=== PATIENT | female | born 1955 | race Caucasian/White ===

== ENCOUNTER 2017-12-26 10:09 | Inpatient (IN) | payer BC, OTHER ==
[~2017-12-26] VITALS: Ht 160 cm; Wt 58.5 kg
[~2017-12-26 10:09] MED LIST: ALPR-138 PO; CLON.5 PO; DERMOTIC EACH EAR; PHEN12.5 PR; TRAM50TA PO; VENL75TA91 PO; VITA200017 PO; Z.0.NO CURRENT MEDS
[2017-12-26 10:11] VITALS: BP 134/60; PULSE 95; RESP 16; TEMP 97.6; O2SAT 97
[2017-12-26] MEDS ORDERED: SODIUM CHLOR 0.9% 1000 ML INJ 1,000 ML IV SCH (10:48)
[2017-12-26] MEDS ORDERED: ESCI10TA PO (10:50)
[2017-12-26] MEDS ORDERED: CLON1TAB PO (10:50)
[2017-12-26] MEDS ORDERED: ALPR0.25 PO (10:50)
[2017-12-26 10:51] VITALS: O2SAT 99
--- NOTE | 2017-12-26 10:56 | PD ---
HPI Chief Complaint: GI Complaint Time Seen by Provider: 10:42 Travel History International Travel<30 days: No Contact w/Intl Traveler<30days: No Traveled to known affect area: No History of Present Illness HPI 62-year-old female complains of abdominal pain and blood per rectum. Patient states that she has abdominal pain and diarrhea nightly for the past 4 nights. Patient states the pain is cramping pain localized to the lower abdomen. Patient denies any pain radiation. Patient was seen by personal physician this morning and had outpatient lab work. Patient started having a large amount of blood per rectum subsequently. Patient states that she had persistent pain mostly epigastric and left upper abdomen this morning. Patient states the pain is cramping pain and sharp pain. Patient denies any pain radiation. Patient denies any dysuria or frequency. Patient denies any vaginal discharge or bleeding. Patient vomited once this morning. Patient is not on any anticoagulation. Patient states that she had colonoscopy done 2 years ago and was normal. PFSH Past Medical History Diminished Hearing: No ?: Not Menopausal: Yes Tubal Ligation: Yes Past Surgical History Appendectomy: Yes Social History Alcohol Use: No Tobacco Use: No Substance Use: No Allergies-Medications (Allergen,Severity, Reaction): Coded Allergies: warfarin (Unverified Allergy, Severe, sob/dizzy, 12/26/17) clonazepam (Unverified Adverse Reaction, Intermediate, vomiting and dizzy , 12/26/17) Reported Meds & Prescriptions Reported Meds & Active Scripts Active Reported Alprazolam 0.25 Mg Tab 0.25 Mg PO Q8H PRN Escitalopram (Escitalopram Oxalate) 10 Mg Tab 10 Mg PO DAILY Clonazepam 1 Mg Tab 1 Mg PO BID Review of Systems General / Constitutional: No: Fever Eyes: No: Visual changes HENT: No: Headaches Cardiovascular: No: Chest Pain or Discomfort Respiratory: No: Shortness of Breath Gastrointestinal: Positive: Abdominal Pain, Hematochezia Genitourinary: No: Dysuria Musculoskeletal: No: Pain Skin: No Rash Neurologic: No: Weakness Psychiatric: No: Depression Endocrine: No: Polydipsia Hematologic/Lymphatic: No: Easy Bruising Physical Exam Narrative GENERAL: Well-nourished, well-developed patient. SKIN: Focused skin assessment warm/dry. HEAD: Normocephalic. EYES: No scleral icterus. No injection or drainage. NECK: Supple, trachea midline. No JVD or lymphadenopathy. CARDIOVASCULAR: Regular rate and rhythm without murmurs, gallops, or rubs. RESPIRATORY: Breath sounds equal bilaterally. No accessory muscle use. GASTROINTESTINAL: Abdomen soft, nondistended. Patient has moderate tenderness on palpation epigastric and left upper quadrant of the abdomen. No rebound tenderness. No mass. Rectal exam Hemoccult trace positive. MUSCULOSKELETAL: No cyanosis, or edema. BACK: Nontender without obvious deformity. No CVA tenderness. Neurologic exam normal. Data Data Last Documented VS Vital Signs Date Time Temp Pulse Resp B/P (MAP) Pulse Ox O2 Delivery O2 Flow Rate FiO2 12/26/17 14:00 110 18 109/53 (71) 99 Room Air 12/26/17 10:11 97.6 Orders Orders Complete Blood Count With Diff (12/26/17 10:48) Comprehensive Metabolic Panel (12/26/17 10:48) Lipase (12/26/17 10:48) Prothrombin Time / Inr (Pt) (12/26/17 10:48) Act Partial Throm Time (Ptt) (12/26/17 10:48) Urinalysis - C+S If Indicated (12/26/17 10:48) Ct Abd/Pel W Iv Contrast(Rout) (12/26/17 10:48) Iv Access Insert/Monitor (12/26/17 10:48) Ecg Monitoring (12/26/17 10:48) Oximetry (12/26/17 10:48) Ondansetron Inj (Zofran Inj) (12/26/17 11:00) Sodium Chlor 0.9% 1000 Ml Inj (Ns 1000 M (12/26/17 10:48) Pantoprazole Inj (Protonix Inj) (12/26/17 11:00) Morphine Inj (Morphine Inj) (12/26/17 11:00) Iohexol 350 Inj (Omnipaque 350 Inj) (12/26/17 12:24) Labs Laboratory Tests Test 12/26/17 10:55 White Blood Count 7.3 TH/MM3 Red Blood Count 4.92 MIL/MM3 Hemoglobin 14.4 GM/DL Hematocrit 42.1 % Mean Corpuscular Volume 85.6 FL Mean Corpuscular Hemoglobin 29.3 PG Mean Corpuscular Hemoglobin Concent 34.3 % Red Cell Distribution Width 12.4 % Platelet Count 281 TH/MM3 Mean Platelet Volume 8.7 FL Neutrophils (%) (Auto) 75.9 % Lymphocytes (%) (Auto) 17.3 % Monocytes (%) (Auto) 6.5 % Eosinophils (%) (Auto) 0.1 % Basophils (%) (Auto) 0.2 % Neutrophils # (Auto) 5.6 TH/MM3 Lymphocytes # (Auto) 1.3 TH/MM3 Monocytes # (Auto) 0.5 TH/MM3 Eosinophils # (Auto) 0.0 TH/MM3 Basophils # (Auto) 0.0 TH/MM3 CBC Comment DIFF FINAL Differential Comment Prothrombin Time 10.2 SEC Prothromb Time International Ratio 1.0 RATIO Activated Partial Thromboplast Time 25.3 SEC Blood Urea Nitrogen 11 MG/DL Creatinine 0.74 MG/DL Random Glucose 101 MG/DL Total Protein 7.2 GM/DL Albumin 3.8 GM/DL Calcium Level 9.1 MG/DL Alkaline Phosphatase 72 U/L Aspartate Amino Transf (AST/SGOT) 24 U/L Alanine Aminotransferase (ALT/SGPT) 19 U/L Total Bilirubin 0.3 MG/DL Sodium Level 141 MEQ/L Potassium Level 3.4 MEQ/L Chloride Level 106 MEQ/L Carbon Dioxide Level 27.2 MEQ/L Anion Gap 8 MEQ/L Estimat Glomerular Filtration Rate 79 ML/MIN Lipase 149 U/L MDM Medical Decision Making Medical Screen Exam Complete: Yes Emergency Medical Condition: Yes Interpretation(s) Last Impressions Abdomen/Pelvis CT 12/26/17 1048 Signed Impressions: Service Date/Time: December 12:20 - CONCLUSION: 1. Questionable thickening of the transverse, descending and sigmoid portions of the colon. Some of this thickening may be secondary to lack of distention but some degree of underlying colitis could be considered. Significant surrounding inflammatory change is not seen. 2. Mild thickening of the urinary bladder. The urinary bladder is only mildly distended. There are 2 small foci of air within the urinary bladder. It can be correlated if the patient has been catheterized recently. 3. 6 mm nonobstructing right renal stone. 4. Mild compressive changes of the superior plate of T12. Jorge Houston MD 1420 p.m. CBC within normal limit. CMP within normal limit. Potassium 3.4. Differential Diagnosis Differential diagnosis including colitis, AV malformation, hemorrhoidal bleed. Narrative Course 62-year-old female with abdominal pain, diarrhea, blood per rectum. Normal saline solution 1 25 cc an hour. Protonix 40 mg IV. Morphine 2 mg IV. Zofran 4 mg IV. Diagnosis Primary Impression: Colitis Additional Impression: GI bleed Qualified Codes: K92.2 - Gastrointestinal hemorrhage, unspecified Ben Ray MD Dec 26, 2017 10:56
[2017-12-26] MEDS ORDERED: MORPHINE SULFATE 2 MG/ML INJ IV PUSH ONE ×2 (11:00→14:30)
[2017-12-26] MEDS ORDERED: PANTOPRAZOLE SODIUM 40 MG VIAL IV PUSH ONE (11:00)
[2017-12-26] MEDS ORDERED: ONDANSETRON HCL 4 MG/2 ML VIAL IVP ONE (11:00)
[2017-12-26 11:30] LABS: AUTOMATED NEUTROPHIL # 5.6 TH/MM3 (1.8-7.7); BASOPHIL % 0.2 % (0.0-2.0); EOSINOPHIL % 0.1 % (0.0-4.0); HEMATOCRIT 42.1 % (35.0-46.0); HEMOGLOBIN 14.4 GM/DL (11.6-15.3); LYMPH % 17.3 % (9.0-44.0); LYMPHOCYTE # 1.3 TH/MM3 (1.0-4.8); MEAN CELL VOLUME 85.6 FL (80.0-100.0); MEAN CORPUSCULAR HEMOGLOBIN 29.3 PG (27.0-34.0); MEAN CORPUSCULAR HGB CONC 34.3 % (32.0-36.0); MEAN PLATELET VOLUME 8.7 FL (7.0-11.0); MONO % 6.5 % (0.0-8.0); MONOCYTE # 0.5 TH/MM3 (0-0.9); NEUT % 75.9 % (16.0-70.0); PLATELET COUNT 281 TH/MM3 (150-450); RED BLOOD COUNT 4.92 MIL/MM3 (4.00-5.30); RED CELL DISTRIBUTION WIDTH 12.4 % (11.6-17.2); WHITE BLOOD COUNT 7.3 TH/MM3 (4.0-11.0)
[2017-12-26 11:41] LABS: PROTHROMBIN TIME - PATIENT 10.2 SEC (9.8-11.6)
[2017-12-26 11:51] LABS: ALBUMIN 3.8 GM/DL (3.4-5.0); AST (GOT) 24 U/L (15-37); BICARBONATE 27.2 MEQ/L (21.0-32.0); BLOOD UREA NITROGEN 11 MG/DL (7-18); CALCIUM 9.1 MG/DL (8.5-10.1); CHLORIDE 106 MEQ/L (98-107); CREATININE 0.74 MG/DL (0.50-1.00); GLOMERULAR FILTRATION RATE 79 ML/MIN (>89); GLUCOSE,RANDOM 101 MG/DL (74-106); SODIUM (NA) 141 MEQ/L (136-145)
[2017-12-26 11:52] LABS: ALT (GPT) 19 U/L (10-53)
[2017-12-26 11:55] LABS: ALKALINE PHOSPHATASE 72 U/L (45-117); TOTAL BILIRUBIN ADULT 0.3 MG/DL (0.2-1.0); TOTAL PROTEIN 7.2 GM/DL (6.4-8.2)
[2017-12-26] MEDS ORDERED: IOHEXOL 350 MG/ML 10 ML VIAL (for RAD DIAG) IVCONTRAST ONE (12:24)
--- NOTE | 2017-12-26 13:06 | RADRPT ---
EXAM DATE/TIME: 12/26/2017 12:20 [facility] COMPARISON: No previous studies available for comparison. INDICATIONS : Diarrhea and generalized abdominal pain. IV CONTRAST: 95 cc Omnipaque 350 (iohexol) IV ORAL CONTRAST: No oral contrast ingested. RADIATION DOSE: 7.45 CTDIvol (mGy) MEDICAL HISTORY : None SURGICAL HISTORY : Appendectomy. Tubal ligation. ENCOUNTER: Initial ACUITY: 4 - 6 days PAIN SCALE: 3/10 LOCATION: Bilateral anterior TECHNIQUE: Volumetric scanning of the abdomen and pelvis was performed. Using automated exposure control and ad justment of the mA and/or kV according to patient size, radiation dose was kept as low as reasonably achievable to obtain optimal diagnostic quality images. DICOM format image data is available electro nically for review and comparison. FINDINGS: LOWER LUNGS: The visualized lower lungs are clear. LIVER: Homogeneous density without lesion. There is no dilation of the biliary tree. No calcified gallston es. SPLEEN: Normal size without lesion. PANCREAS: Within normal limits. KIDNEYS: There is a 6 mm nonobstructing right renal stone seen in the inferior right collecting system. No hyd ronephrosis is seen on either side. There are small cysts seen bilaterally. ADRENAL GLANDS: Within normal limits. VASCULAR: There is no aortic aneurysm. BOWEL/MESENTERY: There is some thickening of the transverse, descending and sigmoid portions of colon. Some of the thi ckening may be secondary to lack of distention but some underlying process such as colitis can also b e contributing to this appearance. Significant bowel dilatation is not seen. ABDOMINAL WALL: Within normal limits. RETROPERITONEUM: There is no lymphadenopathy. BLADDER: There is streak artifact throughout the pelvis secondary to the bilateral hip prostheses. The bladder appears thickened. There are 2 small foci of air within the bladder. It should be correlated if the patient has been catheterized recently. REPRODUCTIVE: Within normal limits. INGUINAL: There is no lymphadenopathy or hernia. MUSCULOSKELETAL: Bilateral hip prostheses are in place. There is a concave deformity at the superior aspect of the T12 vertebral body which may represent a mild compression deformity. This is felt to likely be chronic. There is degenerative change of the lower lumbar spine. CONCLUSION: 1. Questionable thickening of the transverse, descending and sigmoid portions of the colon. Some of t his thickening may be secondary to lack of distention but some degree of underlying colitis could be considered. Significant surrounding inflammatory change is not seen. 2. Mild thickening of the urinary bladder. The urinary bladder is only mildly distended. There are 2 small foci of air within the urinary bladder. It can be correlated if the patient has been catheteriz ed recently. 3. 6 mm nonobstructing right renal stone. 4. Mild compressive changes of the superior plate of T12. Jorge Houston MD on December 26, 2017 at 12:57 Board Certified Radiologist. This report was verified electronically.
[2017-12-26 14:00] VITALS: BP 109/53; PULSE 110; RESP 18; O2SAT 99
[2017-12-26] MEDS ORDERED: LORazepam 2 MG/ML VIAL IV PUSH PRN (14:30)
[2017-12-26] MEDS ORDERED: TEMAZEPAM 15 MG CAP PO PRN (14:30)
[2017-12-26] MEDS ORDERED: NALOXONE HCL 0.4 MG/ML AMP IV PUSH PRN (14:30)
[2017-12-26] MEDS ORDERED: ACETAMINOPHEN 325 MG TAB PO PRN (14:30)
[2017-12-26] MEDS ORDERED: LEVOFLOXACIN 750 MG PREMIX INJ 150 ML IV ONE (14:30)
[2017-12-26] MEDS ORDERED: metroNIDAZOLE 500 MG INJ 100 ML IV ONE (14:30)
[2017-12-26] MEDS ORDERED: SODIUM CHLORIDE 0.9% FLUSH 10 ML FLUSH IV FLUSH PRN (14:30)
[2017-12-26] MEDS ORDERED: MAGNESIUM HYDROXIDE SUSP 30 ML CUP PO PRN (14:30)
--- NOTE | 2017-12-26 14:37 | HHI.HP ---
HPI Service [facility] Hospitalists Primary Care Physician Dorita Marie MD Admission Diagnosis Colitis Chief Complaint: Diarrhea 5 days with bright red blood per rectum Travel History International Travel<30 Days: No Contact w/Intl Traveler <30 Da: No Traveled to Known Affected Are: No History of Present Illness This a 62-year-old female patient with past medical history which includes anxiety/depression. Patient reports starting Saturday night she began to have abdominal cramping with intermitted diarrhea which last till Saturday then resolved. This reoccurred Saturday evening and Saturday. Therefore for the past 5 nights she has been having diarrhea. Patient reports the diarrhea has only been occurring at night. Patient otherwise has been able to tolerate PO intake and hydration. Associated symptoms Dizziness with slight headache Saturday early AM. Patient saw here PCP Dr. Ozuna this AM, then patient had an episode of BRBPR x 1 today. Patient also reports one episode of vomiting after taking Pepto Bismol this AM. Patient also endorses both cramping and sharp abdominal pain worse LUQ. Patient's last coloscopy was two years ago and patient reports it was normal. Patient's last abx use was is September 2017 for an UTI. Patient denies history of colitis, diverticulitis, GI bleeding or colon cancer. Per ER MD patient had positive guaiac stool but no active bleeding in the ER. Hgb 14.4 and hematocrit 42.[address] reviewed and revealed: Question of thickening thickening of the transverse, descending and sigmoid portions of the colon. Some thickening may be secondary to lack of distention but some degree of underlying colitis could be considered. Significant surrounding inflammatory change is not seen. Mild thickening of the urinary bladder. The urinary bladder is only mildly distended. There are 2 small foci of air within the urinary bladder. The it could be correlated to the patient has been catheterized recently. 6 mm nonobstructing right renal stone. Mild compressive changes of the superior plate of T12. Patient started on Levaquin and Flagyl in the emergency department Review of Systems Constitutional: DENIES: Fatigue, Fever, Chills Respiratory: DENIES: Cough, Sputum production, Shortness of breath Cardiovascular: DENIES: Chest pain, Palpitations, Lower Extremity Edema Gastrointestinal: COMPLAINS OF: Abdominal pain, BRB per rectum, Diarrhea, Nausea, Vomiting Genitourinary: DENIES: Abnormal vaginal bleeding Neurologic: DENIES: Abnormal gait, Headache, Localized weakness Psychiatric: DENIES: Confusion, Depression, Agitation Past Family Social History Past Medical History Anxiety/depression Past Surgical History Appendectomy Renal lithotripsy Total hip replacements bilaterally Tubal ligation Reported Medications Alprazolam 0.25 Mg Tab 0.25 Mg PO Q8H PRN Escitalopram (Escitalopram Oxalate) 10 Mg Tab 10 Mg PO DAILY Clonazepam 1 Mg Tab 1 Mg PO BID Allergies: Coded Allergies: warfarin (Unverified Allergy, Severe, sob/dizzy, 12/26/17) clonazepam (Unverified Adverse Reaction, Intermediate, vomiting and dizzy , 12/26/17) Active Ordered Medications Current Medications Medications (Trade) Dose Ordered Sig/Donovan Route Start Time Stop Time Status Last Admin Sodium Chloride 1,000 ml @ 125 mls/hr Q8H IV 12/26/17 10:48 12/26/17 18:47 12/26/17 11:17 Levofloxacin/ Dextrose 150 ml @ 100 mls/hr ONCE ONCE IV 12/26/17 14:30 12/26/17 15:59 Metronidazole 100 ml @ 100 mls/hr ONCE ONCE IV 12/26/17 14:30 12/26/17 15:29 (NS Flush) 2 ml UNSCH PRN IV FLUSH 12/26/17 14:30 (NS Flush) 2 ml BID IV FLUSH 12/26/17 21:00 (Tylenol) 650 mg Q4H PRN PO 12/26/17 14:30 (Zofran Inj) 4 mg Q6H PRN IVP 12/26/17 14:30 (Restoril) 15 mg HS PRN PO 12/26/17 14:30 (Narcan Inj) 0.4 mg UNSCH PRN IV PUSH 12/26/17 14:30 (Milk Of Magnesia Liq) 30 ml Q12H PRN PO 12/26/17 14:30 (Ativan Inj) 0.5 mg Q4H PRN IV PUSH 12/26/17 14:30 Potassium Chloride/Sodium Chloride 1,000 ml @ 100 mls/hr Q10H IV 12/26/17 14:45 12/27/17 08:00 UNV (Levaquin) 500 mg DAILY PO 12/27/17 08:00 UNV (Flagyl) 500 mg Q8HR PO 12/26/17 20:00 UNV (Duenweg 5-325 Mg) 1 tab Q6H PRN PO 12/26/17 14:45 UNV (Dilaudid Pf Inj) 0.5 mg Q6H PRN IV PUSH 12/26/17 14:45 UNV Family History Reviewed and noncontributory Social History Patient is currently Former tobacco use quit tobacco use 32 years ago Denies EtOH use or illicit drug use Physical Exam Vital Signs Vital Signs Date Time Temp Pulse Resp B/P (MAP) Pulse Ox O2 Delivery O2 Flow Rate FiO2 12/26/17 14:00 110 18 109/53 (71) 99 Room Air 12/26/17 10:51 99 Room Air 12/26/17 10:11 97.6 95 16 134/60 (84) 97 Physical Exam GENERAL: This is a well-nourished, well-developed patient, in no apparent distress. SKIN: No rashes, ecchymoses or lesions. Cool and dry. HEAD: Atraumatic. Normocephalic. No temporal or scalp tenderness. EYES: Extraocular motions intact. No scleral icterus. No injection or drainage. CARDIOVASCULAR: Regular rate and rhythm RESPIRATORY: Clear to auscultation. Breath sounds equal bilaterally. GASTROINTESTINAL: Abdomen soft, tender LUQ, nondistended. MUSCULOSKELETAL: Extremities without clubbing, cyanosis, or edema. No joint tenderness, effusion, or edema noted. No calf tenderness. Negative Homans sign bilaterally. NEUROLOGICAL: Awake and alert. Motor and sensory grossly within normal limits. Five out of 5 muscle strength in all muscle groups. Normal speech. Laboratory Laboratory Tests Test 12/26/17 10:55 White Blood Count 7.3 Red Blood Count 4.92 Hemoglobin 14.4 Hematocrit 42.1 Mean Corpuscular Volume 85.6 Mean Corpuscular Hemoglobin 29.3 Mean Corpuscular Hemoglobin Concent 34.3 Red Cell Distribution Width 12.4 Platelet Count 281 Mean Platelet Volume 8.7 Neutrophils (%) (Auto) 75.9 Lymphocytes (%) (Auto) 17.3 Monocytes (%) (Auto) 6.5 Eosinophils (%) (Auto) 0.1 Basophils (%) (Auto) 0.2 Neutrophils # (Auto) 5.6 Lymphocytes # (Auto) 1.3 Monocytes # (Auto) 0.5 Eosinophils # (Auto) 0.0 Basophils # (Auto) 0.0 CBC Comment DIFF FINAL Differential Comment Prothrombin Time 10.2 Prothromb Time International Ratio 1.0 Activated Partial Thromboplast Time 25.3 Blood Urea Nitrogen 11 Creatinine 0.74 Random Glucose 101 Total Protein 7.2 Albumin 3.8 Calcium Level 9.1 Alkaline Phosphatase 72 Aspartate Amino Transf (AST/SGOT) 24 Alanine Aminotransferase (ALT/SGPT) 19 Total Bilirubin 0.3 Sodium Level 141 Potassium Level 3.4 Chloride Level 106 Carbon Dioxide Level 27.2 Anion Gap 8 Estimat Glomerular Filtration Rate 79 Lipase 149 Result Diagram: 12/26/17 1055 12/26/17 1055 Imaging Last Impressions Abdomen/Pelvis CT 12/26/17 1048 Signed Impressions: Service Date/Time: December 12:20 - CONCLUSION: 1. Questionable thickening of the transverse, descending and sigmoid portions of the colon. Some of this thickening may be secondary to lack of distention but some degree of underlying colitis could be considered. Significant surrounding inflammatory change is not seen. 2. Mild thickening of the urinary bladder. The urinary bladder is only mildly distended. There are 2 small foci of air within the urinary bladder. It can be correlated if the patient has been catheterized recently. 3. 6 mm nonobstructing right renal stone. 4. Mild compressive changes of the superior plate of T12. Jorge Houston MD Caprini VTE Risk Assessment Caprini VTE Risk Assessment: No/Low Risk (score <= 1) Caprini Risk Assessment Model Point Value = 1 Point Value = 2 Point Value = 3 Point Value = 5 Age 41-60 Minor surgery BMI > 25 kg/m2 Swollen legs Varicose veins or History of unexplained or recurrent spontaneous Oral contraceptives or hormone replacement Sepsis (< 1 month) Serious lung disease, including pneumonia (< 1 month) Abnormal pulmonary function Acute myocardial infarction Congestive heart failure (< 1 month) History of inflammatory bowel disease Medical patient at bed rest Age 61-74 Arthroscopic surgery Major open surgery (> 45 min) Laparoscopic surgery (> 45 min) Malignancy Confined to bed (> 72 hours) Immobilizing plaster cast Central venous access Age >= 75 History of VTE Family history of VTE Factor V Leiden Prothrombin 44117H Lupus anticoagulant Anticardiolipin antibodies Elevated serum homocysteine Heparin-induced thrombocytopenia Other congenital or acquired thrombophilia Stroke (< 1 month) Elective arthroplasty Hip, pelvis, or leg fracture Acute spinal cord injury (< 1 month) Prophylaxis Regimen Total Risk Factor Score Risk Level Prophylaxis Regimen 0-1 Low Early ambulation 2 Moderate Order ONE of the following: *Sequential Compression Device (SCD) *Heparin 5000 units SQ BID 3-4 Higher Order ONE of the following medications: *Heparin 5000 units SQ TID *Enoxaparin/Lovenox 40 mg SQ daily (WT < 150 kg, CrCl > 30 mL/min) *Enoxaparin/Lovenox 30 mg SQ daily (WT < 150 kg, CrCl > 10-29 mL/min) *Enoxaparin/Lovenox 30 mg SQ BID (WT < 150 kg, CrCl > 30 mL/min) AND/OR *Sequential Compression Device (SCD) 5 or more Highest Order ONE of the following medications: *Heparin 5000 units SQ TID (Preferred with Epidurals) *Enoxaparin/Lovenox 40 mg SQ daily (WT < 150 kg, CrCl > 30 mL/min) *Enoxaparin/Lovenox 30 mg SQ daily (WT < 150 kg, CrCl > 10-29 mL/min) *Enoxaparin/Lovenox 30 mg SQ BID (WT < 150 kg, CrCl > 30 mL/min) AND *Sequential Compression Device (SCD) Assessment and Plan Problem List: (1) Colitis ICD Codes: K52.9 - Noninfective gastroenteritis and colitis, unspecified Status: Acute Plan: This a 62-year-old female patient with past medical history which includes anxiety/depression. Patient reports for the past 5 nights she has been having diarrhea. Patient reports the diarrhea has only been occurring at night. Patient otherwise has been able to tolerate PO intake and hydration. Today this patient had an episode of BRBPR x 1 today. Patient also reports one episode of vomiting after taking Pepto Bismol this AM. Patient also endorses both cramping and sharp abdominal pain worse LUQ. Patient's last coloscopy was two years ago and patient reports it was normal. - Per ER MD patient had positive guaiac stool but no active bleeding in the ER. - Hgb 14.4 on admission - Recheck in AM - CT reviewed and revealed: Question of thickening thickening of the transverse , descending and sigmoid portions of the colon. Some thickening may be secondary to lack of distention but some degree of underlying colitis could be considered. Significant surrounding inflammatory change is not seen. Mild thickening of the urinary bladder. The urinary bladder is only mildly distended. There are 2 small foci of air within the urinary bladder. The it could be correlated to the patient has been catheterized recently. 6 mm nonobstructing right renal stone. Mild compressive changes of the superior plate of T12. - Patient started on Levaquin and Flagyl in the emergency department - continue Levaquin and Flagyl - IV fluids for hydration - clear liquid diet - Duenweg PO and Dilaudid IV as needed for pain - Consult GI - Stool studies including C diff - Protonix 40 mg daily SCDs for DVT prophylaxis (2) GI bleed ICD Codes: K92.2 - Gastrointestinal hemorrhage, unspecified Status: Acute Plan: see above (3) Generalized anxiety disorder Status: Chronic Plan: Continue patient's home regiment Assessment and Plan Patient examined. Assessment and plan formulated with Digna Bonds PA-C. I agree with the above. Problem Qualifiers (1) GI bleed: Qualified Codes: K92.2 - Gastrointestinal hemorrhage, unspecified Digna Bonds Dec 26, 2017 14:37 Frandy Rodriguez DO Jan 01, 2018 10:50
[2017-12-26] MEDS ORDERED: ACETAMINOPHEN/HYDROcodone 325 MG/5 MG TAB PO PRN (14:45)
[2017-12-26] MEDS ORDERED: HYDROmorphone HCL PF 1 MG/ML VIAL IV PUSH PRN (14:45)
[2017-12-26] MEDS ORDERED: 1/2 NS + KCL 20 MEQ INJ 1,000 ML IV SCH (14:45)
[2017-12-26] MEDS ORDERED: ALPRAZolam 0.25 MG TAB PO PRN (15:00)
--- NOTE | 2017-12-26 15:15 | RADRPT ---
EXAM DATE/TIME: 12/26/2017 14:35 [facility] COMPARISON: No previous studies available for comparison. INDICATIONS : Pt. sent by MEDICAL HISTORY : colitis SURGICAL HISTORY : None. ENCOUNTER: Initial ACUITY: 1 day PAIN SCORE: 0/10 LOCATION: Bilateral chest FINDINGS: A single view of the chest demonstrates the lungs to be symmetrically aerated without evidence of mas s, infiltrate or effusion. The cardiomediastinal contours are unremarkable. Osseous structures are intact. CONCLUSION: No acute disease. Norberto Souza MD on December 26, 2017 at 15:11 Board Certified Radiologist. This report was verified electronically.
--- NOTE | 2017-12-26 16:01 | PD.CONS ---
HPI History of Present Illness This is a 62 year old female who presented to the ER after being advised by her PCP Dr Marie to come for persistent nightly diarrhea for the last 4 nights, abd pain. ABD pain is diffuse. THis morning she had sensation of needing to defecate and it was all red blood, no stool. Had small amount of blood few hours ago when she used bathroom, nothing since. SHe did have n/v this morning. NO blood or coffee grounds in emesis. 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 3 weeks ago she started lexapro 3 wks ago. Denies fever , recent use abx, diet changes. Last colonoscopy 2 y ago at [facility] finding of small int hemorrhoid and small ext hemorrhoid. Never had EGD. PFSH Past Medical History depression/anxiety insomnia Past Surgical History appendectomy tubal ligation 3 x hip replacements Coded Allergies: warfarin (Unverified Allergy, Severe, sob/dizzy, 12/26/17) clonazepam (Unverified Adverse Reaction, Intermediate, vomiting and dizzy , 12/26/17) Family History denies Social History denies etoh former smoker quit 32 y ago no illicit drug use Review of Systems Constitutional: DENIES: Fever Eyes: DENIES: Blurred vision Ears, nose, mouth, throat: DENIES: Hearing loss Respiratory: DENIES: Cough Cardiovascular: DENIES: Chest pain Gastrointestinal: COMPLAINS OF: Abdominal pain, Bloody stools, Diarrhea, Nausea , Vomiting, DENIES: Hematemesis Genitourinary: DENIES: Hematuria Musculoskeletal: DENIES: Joint Swelling Integumentary: DENIES: Abnormal pigmentation Hematologic/lymphatic: DENIES: Bruising Neurologic: DENIES: Abnormal gait Psychiatric: COMPLAINS OF: Anxiety GI Exam Vitals I&O Vital Signs Date Time Temp Pulse Resp B/P (MAP) Pulse Ox O2 Delivery O2 Flow Rate FiO2 12/26/17 14:00 110 18 109/53 (71) 99 Room Air 12/26/17 10:51 99 Room Air 12/26/17 10:11 97.6 95 16 134/60 (84) 97 Laboratory Test 12/26/17 10:55 White Blood Count 7.3 TH/MM3 Red Blood Count 4.92 MIL/MM3 Hemoglobin 14.4 GM/DL Hematocrit 42.1 % Mean Corpuscular Volume 85.6 FL Mean Corpuscular Hemoglobin 29.3 PG Mean Corpuscular Hemoglobin Concent 34.3 % Red Cell Distribution Width 12.4 % Platelet Count 281 TH/MM3 Mean Platelet Volume 8.7 FL Neutrophils (%) (Auto) 75.9 % Lymphocytes (%) (Auto) 17.3 % Monocytes (%) (Auto) 6.5 % Eosinophils (%) (Auto) 0.1 % Basophils (%) (Auto) 0.2 % Neutrophils # (Auto) 5.6 TH/MM3 Lymphocytes # (Auto) 1.3 TH/MM3 Monocytes # (Auto) 0.5 TH/MM3 Eosinophils # (Auto) 0.0 TH/MM3 Basophils # (Auto) 0.0 TH/MM3 CBC Comment DIFF FINAL Differential Comment Prothrombin Time 10.2 SEC Prothromb Time International Ratio 1.0 RATIO Activated Partial Thromboplast Time 25.3 SEC Blood Urea Nitrogen 11 MG/DL Creatinine 0.74 MG/DL Random Glucose 101 MG/DL Total Protein 7.2 GM/DL Albumin 3.8 GM/DL Calcium Level 9.1 MG/DL Alkaline Phosphatase 72 U/L Aspartate Amino Transf (AST/SGOT) 24 U/L Alanine Aminotransferase (ALT/SGPT) 19 U/L Total Bilirubin 0.3 MG/DL Sodium Level 141 MEQ/L Potassium Level 3.4 MEQ/L Chloride Level 106 MEQ/L Carbon Dioxide Level 27.2 MEQ/L Anion Gap 8 MEQ/L Estimat Glomerular Filtration Rate 79 ML/MIN Lipase 149 U/L Physical Examination HEENT: Pupils round and reactive to light; normocephalic; atraumatic; no jaundice. Throat is clear. NECK: Neck is supple, no JVD, no lymphadenopathy. CHEST: Chest is clear to auscultation and percussion. CARDIAC: Regular rate and rhythm with no murmur gallop or rubs. ABDOMEN: Soft, nondistended, nontender; no hepatosplenomegaly; bowel sounds are present in all four quadrants. EXTREMITIES: No clubbing, cyanosis, or edema. SKIN: Normal; no rash; no jaundice. [employer]: No focal deficits; alert and oriented times three. Shari Wolf Dec 26, 2017 16:01
[2017-12-26] MEDS: ONDANSETRON HCL 4 MG/2 ML VIAL IVP PRN ×2 (16:26→22:46)
[2017-12-26 16:27] VITALS: BP 128/60; PULSE 64; RESP 17; O2SAT 99
[2017-12-26] MEDS ORDERED: PEG (High)/E-LYTE SOLN 4000 ML BTL PO ONE (17:00)
[2017-12-26 18:00] VITALS: BP 128/60; PULSE 65; RESP 17; TEMP 96.8; O2SAT 95
[2017-12-26] MEDS: clonazePAM 1 MG TAB PO SCH (18:14)
[2017-12-26 20:00] VITALS: BP 107/53; PULSE 103; RESP 18; TEMP 96.4; O2SAT 92
[2017-12-26] MEDS ORDERED: ESCITALOPRAM OXALATE 10 MG TAB PO SCH (21:00)
[2017-12-26] MEDS ORDERED: clonazePAM 1 MG TAB PO SCH (21:00)
[2017-12-26] MEDS: metroNIDAZOLE 500 MG TAB PO SCH (22:47)
[2017-12-26] MEDS: SODIUM CHLORIDE 0.9% FLUSH 10 ML FLUSH IV FLUSH SCH (22:47)
[2017-12-27] VITALS: BP 87/54; PULSE 70; RESP 18; TEMP 96.9; O2SAT 96
[2017-12-27] MEDS ORDERED: SODIUM CHLORID 0.9% 500 ML IV PRN (02:30)
[2017-12-27] MEDS ORDERED: LACTATED RINGER'S 1000 ML IV PRN (02:30)
[2017-12-27 04:52] VITALS: BP 102/53; PULSE 80; RESP 18; TEMP 96.1; O2SAT 94
[2017-12-27 05:50] LABS: AUTOMATED NEUTROPHIL # 5.8 TH/MM3 (1.8-7.7); BASOPHIL % 0.1 % (0.0-2.0); EOSINOPHIL % 0.3 % (0.0-4.0); HEMATOCRIT 38.2 % (35.0-46.0); LYMPH % 13.4 % (9.0-44.0); MEAN CELL VOLUME 86.5 FL (80.0-100.0); MEAN CORPUSCULAR HEMOGLOBIN 29.4 PG (27.0-34.0); MONO % 6.5 % (0.0-8.0); MONOCYTE # 0.5 TH/MM3 (0-0.9); NEUT % 79.7 % (16.0-70.0); PLATELET COUNT 218 TH/MM3 (150-450); RED BLOOD COUNT 4.41 MIL/MM3 (4.00-5.30); RED CELL DISTRIBUTION WIDTH 12.3 % (11.6-17.2); WHITE BLOOD COUNT 7.3 TH/MM3 (4.0-11.0)
[2017-12-27 06:21] LABS: BICARBONATE 26.2 MEQ/L (21.0-32.0); CALCIUM 8.1 MG/DL (8.5-10.1); CREATININE 0.58 MG/DL (0.50-1.00)
[2017-12-27] MEDS: metroNIDAZOLE 500 MG TAB PO SCH (06:51)
[2017-12-27 07:56] VITALS: BP 109/51; PULSE 80; RESP 14; TEMP 97.8; O2SAT 96
[2017-12-27] MEDS ORDERED: LEVOFLOXACIN 500 MG TAB PO SCH (08:00)
[2017-12-27] MEDS: clonazePAM 1 MG TAB PO SCH (08:41)
[2017-12-27] MEDS: SODIUM CHLORIDE 0.9% FLUSH 10 ML FLUSH IV FLUSH SCH (08:41)
[2017-12-27] MEDS ORDERED: ESCITALOPRAM OXALATE 10 MG TAB PO SCH (09:00)
[2017-12-27] MEDS ORDERED: LEVA500T33 PO ×2 (09:21→09:38)
[2017-12-27] MEDS ORDERED: METR-1 PO ×2 (09:21→09:38)
--- NOTE | 2017-12-27 09:32 | HHI.DS ---
Discharge Summary Admission Date Dec 26, 2017 at 15:03 Discharge Date: Dec 27, 2017 Admitting Diagnosis Colitis (1) Colitis Diagnosis: Principal ICD Codes: K52.9 - Noninfective gastroenteritis and colitis, unspecified Status: Acute (2) GI bleed Diagnosis: Principal ICD Codes: K92.2 - Gastrointestinal hemorrhage, unspecified Status: Acute (3) Generalized anxiety disorder Diagnosis: Secondary Status: Chronic Consultants Dr. Constantino, GI Procedures none Brief History This a 62-year-old female patient with past medical history which includes anxiety/depression. Patient reports starting Saturday night she began to have abdominal cramping with intermitted diarrhea which last till Saturday AM then resolved. This reoccurred Saturday evening and Saturday evening. Therefore for the past 5 nights she has been having diarrhea. Patient reports the diarrhea has only been occurring at night. Patient otherwise has been able to tolerate PO intake and hydration. Associated symptoms Dizziness with slight headache Saturday early AM. Patient saw here PCP Dr. Ozuna this AM, then patient had an episode of BRBPR x 1 today. Patient also reports one episode of vomiting after taking Pepto Bismol this AM. Patient also endorses both cramping and sharp abdominal pain worse LUQ. Patient's last coloscopy was two years ago and patient reports it was normal. Patient's last abx use was is September 2017 for an UTI. Patient denies history of colitis, diverticulitis, GI bleeding or colon cancer. Per ER MD patient had positive guaiac stool but no active bleeding in the ER. Hgb 14.4 and hematocrit 42.[address] reviewed and revealed: Question of thickening thickening of the transverse, descending and sigmoid portions of the colon. Some thickening may be secondary to lack of distention but some degree of underlying colitis could be considered. Significant surrounding inflammatory change is not seen. Mild thickening of the urinary bladder. The urinary bladder is only mildly distended. There are 2 small foci of air within the urinary bladder. The it could be correlated to the patient has been catheterized recently. 6 mm nonobstructing right renal stone. Mild compressive changes of the superior plate of T12. Patient started on Levaquin and Flagyl in the emergency department CBC/BMP: 12/27/17 0410 12/27/17 0410 Significant Findings Laboratory Tests Test 12/26/17 10:55 12/27/17 04:10 Neutrophils (%) (Auto) 75.9 % (16.0-70.0) 79.7 % (16.0-70.0) Potassium Level 3.4 MEQ/L (3.5-5.1) Estimat Glomerular Filtration Rate 79 ML/MIN (>89) Calcium Level 8.1 MG/DL (8.5-10.1) Imaging Last Impressions Chest X-Ray 12/26/17 1428 Signed Impressions: Service Date/Time: December 14:35 - CONCLUSION: No acute disease. Norberto Souza MD Abdomen/Pelvis CT 12/26/17 1048 Signed Impressions: Service Date/Time: December 12:20 - CONCLUSION: 1. Questionable thickening of the transverse, descending and sigmoid portions of the colon. Some of this thickening may be secondary to lack of distention but some degree of underlying colitis could be considered. Significant surrounding inflammatory change is not seen. 2. Mild thickening of the urinary bladder. The urinary bladder is only mildly distended. There are 2 small foci of air within the urinary bladder. It can be correlated if the patient has been catheterized recently. 3. 6 mm nonobstructing right renal stone. 4. Mild compressive changes of the superior plate of T12. Jorge Houston MD PE at Discharge GENERAL: This is a well-nourished, well-developed patient, anxious in no acute distress. CARDIOVASCULAR: Regular rate and rhythm without murmurs, gallops, or rubs. RESPIRATORY: Clear to auscultation. Breath sounds equal bilaterally. No wheezes , rales, or rhonchi. GASTROINTESTINAL: Abdomen soft, non-tender, nondistended. Normal active bowel sounds MUSCULOSKELETAL: Extremities without clubbing, cyanosis, or edema. NEURO: Alert & Oriented x4 to person, place, time, situation. Moves all ext x4 Hospital Course Colitis This a 62-year-old female patient with past medical history which includes anxiety/depression. Patient reports for the past 5 nights she has been having diarrhea. Patient reports the diarrhea has only been occurring at night. Patient otherwise has been able to tolerate PO intake and hydration. Today this patient had an episode of BRBPR x 1 today. Patient also reports one episode of vomiting after taking Pepto Bismol this AM. Patient also endorses both cramping and sharp abdominal pain worse LUQ. Patient's last coloscopy was two years ago and patient reports it was normal. - Per ER MD patient had positive guaiac stool but no active bleeding in the ER. - Hgb 14.4 on admission - Recheck in AM - CT reviewed and revealed: Question of thickening thickening of the transverse , descending and sigmoid portions of the colon. Some thickening may be secondary to lack of distention but some degree of underlying colitis could be considered. Significant surrounding inflammatory change is not seen. Mild thickening of the urinary bladder. The urinary bladder is only mildly distended. There are 2 small foci of air within the urinary bladder. The it could be correlated to the patient has been catheterized recently. 6 mm nonobstructing right renal stone. Mild compressive changes of the superior plate of T12. - Patient started on Levaquin and Flagyl in the emergency department - continue Levaquin and Flagyl - IV fluids for hydration - clear liquid diet - [place] PO and Dilaudid IV as needed for pain - Consult GI, recommended colonoscopy patient unable to tolerate prep and refusing colonoscopy at this time - Stool studies including C diff - Protonix 40 mg daily SCDs for DVT prophylaxis GI bleed see above Generalized anxiety disorder Continue patient's home regiment Patient has had no stool during hospitalization. Patient reports feeling much and requesting to go home. Patient understands risks and is refusing to stay in the hospital any longer. Pt Condition on Discharge: Stable Discharge Disposition: Discharge Home Discharge Instructions DIET: Follow Instructions for: Soft Diet Activities you can perform: Regular-No Restrictions Follow up Referrals: Gastroenterology - 2 Weeks with Anupama Constantino MD PCP Follow-up - [address] Marie New Medications: Levofloxacin (Levaquin) 500 Mg Tablet 500 MG PO Q24H for antibiotic, #6 EACH 0 Refills Metronidazole (Flagyl) 500 Mg Tab 500 MG PO Q8HR for antibiotic, #18 TAB 0 Refills Continued Medications: Alprazolam (Alprazolam) 0.25 Mg Tab 0.25 MG PO Q8H PRN for ANXIETY, TAB 0 Refills Clonazepam (Clonazepam) 1 Mg Tab 1 MG PO TID, #60 TAB 0 Refills Patient takes 1 tablets with breakfast, 1 tablets with lunch and 2 tablets before bed Escitalopram (Escitalopram) 10 Mg Tab 10 MG PO DAILY, #30 TAB 0 Refills Additional Information Patient examined. Assessment and plan formulated with Digna Bonds PA-C. I agree with the above. Pt declined further hospitalization. continue course of PO levaquin/flagyl f/u with PCP in 1 week f/u with [facility] in 2-3 weeks. Digna Bonds Dec 27, 2017 09:32 Frandy Rodriguez DO Jan 01, 2018 10:52
[2017-12-27] MEDS ORDERED: PANTOPRAZOLE SODIUM 40 MG VIAL IV PUSH SCH (11:00)
--- NOTE | 2017-12-27 19:45 | EKG ---
Date Performed: 12/26/2017 Time Performed: 17:12:10 PTAGE: 62 years EKG: SINUS BRADYCARDIA POSSIBLE LEFT ATRIAL ENLARGEMENT BORDERLINE ECG Since the prior tracing, there has been no significant change PREVIOUS TRACING : 01/12/1994 11.14 DOCTOR: Terence Hollins Interpretating Date/Time 12/27/2017 19:43:45
== END 2017-12-27 11:00 | disposition home or self-care (01) | DRG 392 ==
LOC: NEPC 10:09 → NEDA 15:03 → N07B 17:21
PROVIDERS: ADMIT Hospitalist; ATTEND Hospitalist
DX: K52.9 Noninfective gastroenteritis and colitis, unspecified (principal); F41.1 Generalized anxiety disorder; Z87.891 Personal history of nicotine dependence
CPT/HCPCS: 71045; 74177; 80048; 80053; 83690; 85025; 85610; 85730; 93005; 96361; 96374; 96375; C9113; J1170; J1956; J2060; J2270; J2405; J7030; Q9967

== ENCOUNTER 2018-03-07 12:50 | Day surgery (SDC) | payer OTHER ==
[~2018-03-07 12:50] MED LIST changes: -ALPR-138 PO; +ALPR0.25 PO; -CLON.5 PO; +CLON1TAB PO; -DERMOTIC EACH EAR; +ESCI10TA PO; +LEVA500T33 PO; +METR-1 PO; -PHEN12.5 PR; -TRAM50TA PO; -VENL75TA91 PO; -VITA200017 PO; -Z.0.NO CURRENT MEDS
[2018-03-07 13:15] VITALS: BP 113/70; PULSE 60; TEMP 97.5; O2SAT 95
[2018-03-07] MEDS ORDERED: PARO25TA PO (13:24)
--- NOTE | 2018-03-07 14:34 | RADRPT ---
EXAM DATE/TIME: 03/07/2018 14:35 [facility] COMPARISON: No previous studies available for comparison. INDICATIONS : Patient with a history of rectal cancer. MEDICAL HISTORY : Anemia Anxiety Arthritis Colitis Polyps Kidney stones SURGICAL HISTORY : Appendectomy Tubal ligation Bilateral hip replacements Lithotripsy ENCOUNTER: Initial ACUITY: 3 weeks PAIN SCORE: 0/10 FLUORO TIME: 0.26 minutes IMAGE SERIES: 1 ACCESS: Right basilic vein DEVICE(S): 1.) 4 [place] single lumen 40 cm Power PICC PROCEDURE : 1. Ultrasound guidance for venous catheterization. 2. Fluoroscopic guidance. 3. Ultrasound & fluoroscopic guided central venous Power PICC line placement. The risks, benefits and alternatives to the procedure were explained and verbal and written consent w as obtained. The site was prepped in sterile fashion. Full sterile technique was used, including ca p, mask, sterile gloves and gown and a large sterile sheet. Hand hygiene and 2% chlorhexidine prep w as utilized per protocol for cutaneous antisepsis with appropriate dry time for site. Sterile gel a nd sterile probe cover were utilized for ultrasound guidance. The skin and subcutaneous tissues wer e infiltrated with local anesthetic solution. Under direct ultrasound guidance, a suitable vein was accessed and a measuring guidewire was introduc ed and positioned in the central venous system. The ultrasound images depicting access guidance were saved and stored to PACS for permanent record. A Power Injectable PICC line was cut to prescribed length and introduced, positioned with tip at the cavoatrial junction level. The line was flushed and secured per protocol. CONCLUSION: 1. Uncomplicated central venous Power PICC line placement. 2. The PICC line can be used immediately. Yunier Hernandez MD on March 07, 2018 at 14:32 Board Certified Radiologist. This report was verified electronically.
== END 2018-03-07 14:57 | disposition home or self-care (01) ==
LOC: HROP 12:50
PROVIDERS: ATTEND Internal Medicine Hematology & Oncology
DX: C20 Malignant neoplasm of rectum (principal); Z87.442 Personal history of urinary calculi; F41.9 Anxiety disorder, unspecified; D64.9 Anemia, unspecified; K52.9 Noninfective gastroenteritis and colitis, unspecified; M19.90 Unspecified osteoarthritis, unspecified site; Z96.643 Presence of artificial hip joint, bilateral
CPT/HCPCS: 36569; 76937; 77001; C1751; J1642

== ENCOUNTER 2018-03-24 09:34 | Inpatient (IN) | payer OTHER ==
[2018-03-24] VITALS (8 sets, daily range): BP systolic 64–116; BP diastolic 32–68; PULSE 54–84; RESP 16–22; TEMP 97.6–98.2; O2SAT 96–99
[~2018-03-24] VITALS: Ht 160 cm; Wt 98.2 kg
[~2018-03-24 09:34] MED LIST changes: -ESCI10TA PO; -LEVA500T33 PO; -METR-1 PO; +PARO25TA PO
[2018-03-24] MEDS ORDERED: ONDA8TAB7 PO (10:06)
[2018-03-24] MEDS ORDERED: PROC10TA PO (10:06)
[2018-03-24] MEDS ORDERED: PROCHLORPERAZINE INJ 10 MG/2 ML VIAL IV PUSH ONE (10:30)
[2018-03-24] MEDS ORDERED: SODIUM CHLOR 0.9% 1000 ML INJ 1,000 ML IV SCH (10:30)
[2018-03-24] MEDS ORDERED: MORPHINE SULFATE 2 MG/ML SYRINGE IV PUSH ONE (10:30)
[2018-03-24 11:13] LABS: HEMATOCRIT 32.8 % (35.0-46.0); HEMOGLOBIN 11.4 GM/DL (11.6-15.3); MEAN CELL VOLUME 84.3 FL (80.0-100.0); MEAN CORPUSCULAR HEMOGLOBIN 29.2 PG (27.0-34.0); MEAN CORPUSCULAR HGB CONC 34.6 % (32.0-36.0); MEAN PLATELET VOLUME 7.5 FL (7.0-11.0); PLATELET COUNT 50 TH/MM3 (150-450); RED BLOOD COUNT 3.89 MIL/MM3 (4.00-5.30); RED CELL DISTRIBUTION WIDTH 13.1 % (11.6-17.2)
--- NOTE | 2018-03-24 11:16 | PD ---
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 Patient states that she has not been able to tolerate any food for 10 days. She also reports that she is not able to drink liquids. She states that she called her oncologist today and he recommended she come in here for admission for IV fluids and possible nutrition tube. Patient reports that she also told him she did not wish to do any further chemotherapy or radiation treatment. She denies any fevers, chills. She states that she feels the urge to have a bowel movement however when she does only small amounts of stool or mucus comes out. She reports decreased urine output. There are no other complaints. PFSH Past Medical History Hx Anticoagulant Therapy: Yes Anxiety: Yes (MATEO) Depression: Yes (MDM) Cancer: Yes (squamous cell carcinoma) Cardiovascular Problems: No Chemotherapy: Yes Diminished Hearing: No Endocrine: No Genitourinary: No Immune Disorder: No Musculoskeletal: No Neurologic: No Psychiatric: No Reproductive: No Respiratory: No Menopausal: Yes Tubal Ligation: Yes Past Surgical History Appendectomy: Yes Social History Alcohol Use: No Tobacco Use: No Substance Use: No Allergies-Medications (Allergen,Severity, Reaction): Coded Allergies: warfarin (Unverified Allergy, Severe, sob/dizzy, 03/24/18) clonazepam (Unverified Adverse Reaction, Intermediate, vomiting and dizzy , 03/24/18) Reported Meds & Prescriptions Reported Meds & Active Scripts Active Reported Prochlorperazine Maleate 10 Mg Tab 10 Mg PO TID PRN Ondansetron (Ondansetron HCl) 8 Mg Tab 8 Mg PO TID Paroxetine ER (Paroxetine HCl) 25 Mg Tab 25 Mg PO DAILY Alprazolam 0.25 Mg Tab 0.25 Mg PO BID PRN Clonazepam 1 Mg Tab 1 Mg PO QID Patient takes 1 tablets with breakfast, 1 tablets with lunch and 2 tablets before bed Review of Systems Except as stated in HPI: all other systems reviewed are Neg General / Constitutional: No: Fever, Chills HENT: Positive: Lightheadedness, No: Neck Pain Cardiovascular: No: Chest Pain or Discomfort, Palpitations Respiratory: No: Cough, Shortness of Breath Gastrointestinal: Positive: Dysphagia, Loss of Appetite Genitourinary: Positive: Decreased Urinary Output, No: Dysuria Musculoskeletal: Positive: Weakness, No: Pain Skin: Positive Other (Excoriated skin in her groin) Neurologic: Positive: Weakness, No: Headache Physical Exam Narrative GENERAL: Well-developed female in no obvious distress. SKIN: Focused skin assessment warm/dry. Positive skin tenting HEAD: Atraumatic. Normocephalic. EYES: No scleral icterus. No injection or drainage. ENT: No nasal bleeding or discharge. Mucous membranes pink and dry. NECK: Trachea midline. Supple. CARDIOVASCULAR: Regular rate and rhythm. No murmur appreciated. RESPIRATORY: No accessory muscle use. Clear to auscultation. GASTROINTESTINAL: Abdomen soft, non-tender, nondistended. Hepatic and splenic margins not palpable. MUSCULOSKELETAL: No obvious deformities. No clubbing. No cyanosis. No edema. NEUROLOGICAL: Awake and alert. No obvious cranial nerve deficits. Motor grossly within normal limits. Normal speech. Data Data Last Documented VS Vital Signs Date Time Temp Pulse Resp B/P (MAP) Pulse Ox O2 Delivery O2 Flow Rate FiO2 03/24/18 12:27 54 22 103/54 (70) 96 Room Air 03/24/18 09:36 98.2 Orders Orders Complete Blood Count With Diff (03/24/18 10:25) Comprehensive Metabolic Panel (03/24/18 10:25) Ua Includes Microscopic (03/24/18 10:25) Iv Access Insert/Monitor (03/24/18 10:25) Ecg Monitoring (03/24/18 10:25) Oximetry (03/24/18 10:25) Sodium Chlor 0.9% 1000 Ml Inj (Ns 1000 M (03/24/18 10:30) [id number]-[id number]-Wnvr Liq (Magic Mouthwash Adul (03/24/18 13:00) Prochlorperazine Inj (Compazine Inj) (03/24/18 10:30) Morphine Inj (Morphine Inj) (03/24/18 10:30) Labs Laboratory Tests Test 03/24/18 10:30 03/24/18 12:25 White Blood Count 1.0 TH/MM3 Red Blood Count 3.89 MIL/MM3 Hemoglobin 11.4 GM/DL Hematocrit 32.8 % Mean Corpuscular Volume 84.3 FL Mean Corpuscular Hemoglobin 29.2 PG Mean Corpuscular Hemoglobin Concent 34.6 % Red Cell Distribution Width 13.1 % Platelet Count 50 TH/MM3 Mean Platelet Volume 7.5 FL CBC Comment AUTO DIFF Differential Total Cells Counted 100 Neutrophils % (Manual) 50 % Band Neutrophils % 6 % Lymphocytes % 27 % Monocytes % 16 % Neutrophils # (Manual) 0.6 TH/MM3 Metamyelocytes 1 % Differential Comment FINAL DIFF MANUAL Platelet Estimate LOW Platelet Morphology Comment NORMAL Red Cell Morphology Comment NORMAL Blood Urea Nitrogen 11 MG/DL Creatinine 0.57 MG/DL Random Glucose 87 MG/DL Total Protein 5.8 GM/DL Albumin 2.8 GM/DL Calcium Level 8.1 MG/DL Alkaline Phosphatase 56 U/L Aspartate Amino Transf (AST/SGOT) 23 U/L Alanine Aminotransferase (ALT/SGPT) 23 U/L Total Bilirubin 0.3 MG/DL Sodium Level 142 MEQ/L Potassium Level 3.2 MEQ/L Chloride Level 107 MEQ/L Carbon Dioxide Level 26.9 MEQ/L Anion Gap 8 MEQ/L Estimat Glomerular Filtration Rate 107 ML/MIN Urine Color LIGHT-YELLOW Urine Turbidity CLEAR Urine pH 6.0 Urine Specific [place] 1.007 Urine Protein NEG mg/dL Urine Glucose (UA) NEG mg/dL Urine Ketones 10 mg/dL Urine Occult Blood NEG Urine Nitrite NEG Urine Bilirubin NEG Urine Urobilinogen LESS THAN 2.0 MG/DL Urine Leukocyte Esterase TRACE Urine RBC 1 /hpf Urine WBC 1 /hpf MDM Medical Decision Making Medical Screen Exam Complete: Yes Emergency Medical Condition: Yes Differential Diagnosis Dehydration versus metabolic derangement. Narrative Course 62-year-old female with a history of squamous cell cancer of her abdominal wall , who presents today with inability to tolerate food or liquids. The patient was receiving chemotherapy and radiation therapy for this cancer. She states that she no longer wishes to continue the treatment because she feels so weak. The patient is noted to be pancytopenic with a absolute neutrophil count of 560. Patient's platelet count is also low as is her H&H. Her potassium was also noted to be 3.2. We will attempt to give her oral potassium replacement. There is a call out to the [facility] for admission. If she does not start eating, she may need to have a G-tube for nourishment. Diagnosis Primary Impression: Pancytopenia due to antineoplastic chemotherapy Additional Impressions: Hypokalemia Dysphagia Eddi Cortez MD Mar 24, 2018 11:16
[2018-03-24 11:30] LABS: ALBUMIN 2.8 GM/DL (3.4-5.0); AST (GOT) 23 U/L (15-37); BICARBONATE 26.9 MEQ/L (21.0-32.0); BLOOD UREA NITROGEN 11 MG/DL (7-18); CALCIUM 8.1 MG/DL (8.5-10.1); CHLORIDE 107 MEQ/L (98-107); CREATININE 0.57 MG/DL (0.50-1.00); GLOMERULAR FILTRATION RATE 107 ML/MIN (>89); GLUCOSE,RANDOM 87 MG/DL (74-106); SODIUM (NA) 142 MEQ/L (136-145)
[2018-03-24 11:33] LABS: ALKALINE PHOSPHATASE 56 U/L (45-117); ALT (GPT) 23 U/L (10-53); TOTAL BILIRUBIN ADULT 0.3 MG/DL (0.2-1.0); TOTAL PROTEIN 5.8 GM/DL (6.4-8.2)
[2018-03-24 12:03] LABS: BANDS 6 % (0-6); LYMPHOCYTES 27 % (9-44); METAMYELOCYTES 1 % (0-1); MONOCYTES 16 % (0-8); NEUTROPHIL # MANUAL DIFF 0.6 TH/MM3 (1.8-7.7); POLYS (SEG NEUTROPHILS) 50 % (16-70)
[2018-03-24 12:50] LABS: BILIRUBIN, URINE NEG (NEG); BLOOD, URINE NEG (NEG); GLUCOSE,URINE NEG (NEG); KETONE, URINE 10 mg/dL (NEG); NITRITE,URINE NEG (NEG); URINE COLOR LIGHT-YELLOW (YELLW/STRAW); URINE LEUKOCYTE ESTERASE TRACE (NEG)
[2018-03-24] MEDS: NYSTAT/DIPHENHY/LIDO MOUTHWASH (Adult) 120ML SWISH-SWAL SCH ×5 (12:57→21:08)
[2018-03-24] MEDS ORDERED: ACETAMINOPHEN 325 MG TAB PO PRN (13:15)
[2018-03-24] MEDS ORDERED: SODIUM CHLORIDE 0.9% FLUSH 10 ML FLUSH IV FLUSH PRN (13:15)
[2018-03-24] MEDS ORDERED: ONDANSETRON HCL 4 MG/2 ML VIAL IVP PRN (13:15)
[2018-03-24] MEDS ORDERED: MAGNESIUM HYDROXIDE SUSP 30 ML CUP PO PRN (13:15)
[2018-03-24] MEDS ORDERED: NALOXONE HCL 0.4 MG/ML AMP IV PUSH PRN (13:15)
[2018-03-24] MEDS ORDERED: ENOXAPARIN SODIUM 40 MG/0.4 ML SYRINGE SQ SCH (14:00)
--- NOTE | 2018-03-24 14:07 | HHI.HP ---
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 Patient had biopsy 01/30/2018 positive for squamous cell carcinoma. Patient had been seen by Dr. Ludwig who referred her to Dr. Johnson for radiation patient also following with Dr. Molina for concurrent chemotherapy. Patient has started chemotherapy and radiation treatment. Patient presents to the ER today with complaints of , "side effects of chemo and radiation." Patient reports that she has difficulty swallowing because of pain as well as diarrhea since the first week of radiation. Patient had last radiation treatment was Saturday (three days ago). Patient reports last chemotherapy was 1 week ago. Patient also reports very scant urine output. Patient states that she has not been able to tolerate any food for 10 days. She also reports that she is not able to drink liquids. Patient has been unable to take PO due to pain in her mouth and throat. She states that she called her oncologist today and he recommended she come in here for admission for IV fluids and possible nutrition tube. Patient reports that she also told him she did not wish to do any further chemotherapy or radiation treatment. She denies any chest pain, SOB, fevers, chills or dysuria. She states that she feels the urge to have a bowel movement however when she does only small amounts of stool or mucus comes out. She reports decreased urine output. There are no other complaints. Of note PET/CT and MRI for staging PET 02/26/2018 demonstrates focal uptake in the patient's rectum which is the site of primary malignancy without evidence for metastatic disease MRI pelvis with and without contrast 02/25/2018 conclusion: No definite anal or rectal masses are demonstrated. There is questionable 7 mm low-density nodular in the rectum which may represent a piece of stool. There is a nonenhancing 6 mm lymph node directly adjacent to the rectum on the left side of the ischio rectal fossa. If clinically indicated a PET CT could be performed to evaluate for focal hypo-metabolic activity in this location. There are no abnormally enlarged lymph nodes to indicate adenopathy at this time. 9 mm mass in the posterior fossa most likely representing a uterine fibroid. Diffuse non- specific thickening involving the urinary bladder wall with 2 large lateral bladder diverticulum Review of Systems Constitutional: COMPLAINS OF: Fatigue Ears, nose, mouth, throat: COMPLAINS OF: Throat pain Past Family Social History Past Medical History Rectal squamous cell cancer Anxiety/depression Past Surgical History Appendectomy Renal lithotripsy Total hip replacements bilaterally Tubal ligation Reported Medications Prochlorperazine Maleate 10 Mg Tab 10 Mg PO TID PRN Ondansetron (Ondansetron HCl) 8 Mg Tab 8 Mg PO TID Paroxetine ER (Paroxetine HCl) 25 Mg Tab 25 Mg PO DAILY Alprazolam 0.25 Mg Tab 0.25 Mg PO BID PRN Clonazepam 1 Mg Tab 1 Mg PO QID Patient takes 1 tablets with breakfast, 1 tablets with lunch and 2 tablets before bed Allergies: Coded Allergies: warfarin (Unverified Allergy, Severe, sob/dizzy, 03/24/18) Family History Father had a colon cancer Social History Patient is currently Former tobacco use quit tobacco use 32 years ago Denies EtOH use or illicit drug use Physical Exam Vital Signs Vital Signs Date Time Temp Pulse Resp B/P (MAP) Pulse Ox O2 Delivery O2 Flow Rate FiO2 03/24/18 13:26 98 21 03/24/18 12:27 54 22 103/54 (70) 96 Room Air 03/24/18 09:45 76 20 116/68 (84) 97 Room Air 03/24/18 09:36 98.2 84 18 64/32 (43) 96 Physical Exam GENERAL: This is a 62 year old thin female patient, weak appearance SKIN: 4 erythematous areas with vesicular lesions on bilateral buttocks HEAD: Atraumatic. Normocephalic. No temporal or scalp tenderness. EYES: Extraocular motions intact. No scleral icterus. No injection or drainage. ENT: Nose without bleeding, purulent drainage or septal hematoma. Throat without erythema, tonsillar hypertrophy or exudate. Uvula midline. Airway patent. Dry mucous membranes NECK: Trachea midline. No JVD or lymphadenopathy. Supple, nontender, no meningeal signs. CARDIOVASCULAR: Regular rate and rhythm RESPIRATORY: Clear to auscultation. Breath sounds equal bilaterally. GASTROINTESTINAL: Abdomen soft, non-tender, nondistended. MUSCULOSKELETAL: Extremities without clubbing, cyanosis, or edema. No joint tenderness, effusion, or edema noted. No calf tenderness. Negative Homans sign bilaterally. NEUROLOGICAL: Awake and alert. no focal deficits. Motor and sensory grossly within normal limits. 4-5 out of 5 muscle strength in all muscle groups. weak speech. Laboratory Laboratory Tests Test 03/24/18 10:30 03/24/18 12:25 White Blood Count 1.0 Red Blood Count 3.89 Hemoglobin 11.4 Hematocrit 32.8 Mean Corpuscular Volume 84.3 Mean Corpuscular Hemoglobin 29.2 Mean Corpuscular Hemoglobin Concent 34.6 Red Cell Distribution Width 13.1 Platelet Count 50 Mean Platelet Volume 7.5 CBC Comment AUTO DIFF Differential Total Cells Counted 100 Neutrophils % (Manual) 50 Band Neutrophils % 6 Lymphocytes % 27 Monocytes % 16 Neutrophils # (Manual) 0.6 Metamyelocytes 1 Differential Comment FINAL DIFF MANUAL Platelet Estimate LOW Platelet Morphology Comment NORMAL Red Cell Morphology Comment NORMAL Blood Urea Nitrogen 11 Creatinine 0.57 Random Glucose 87 Total Protein 5.8 Albumin 2.8 Calcium Level 8.1 Alkaline Phosphatase 56 Aspartate Amino Transf (AST/SGOT) 23 Alanine Aminotransferase (ALT/SGPT) 23 Total Bilirubin 0.3 Sodium Level 142 Potassium Level 3.2 Chloride Level 107 Carbon Dioxide Level 26.9 Anion Gap 8 Estimat Glomerular Filtration Rate 107 Urine Color LIGHT-YELLOW Urine Turbidity CLEAR Urine pH 6.0 Urine Specific [place] 1.007 Urine Protein NEG Urine Glucose (UA) NEG Urine Ketones 10 Urine Occult Blood NEG Urine Nitrite NEG Urine Bilirubin NEG Urine Urobilinogen LESS THAN 2.0 Urine Leukocyte Esterase TRACE Urine RBC 1 Urine WBC 1 Result Diagram: 03/24/18 1030 03/24/18 1030 Caprini VTE Risk Assessment Caprini VTE Risk Assessment: Mod/High Risk (score >= 2) Caprini Risk Assessment Model Point Value = 1 Point Value = 2 Point Value = 3 Point Value = 5 Age 41-60 Minor surgery BMI > 25 kg/m2 Swollen legs Varicose veins or History of unexplained or recurrent spontaneous Oral contraceptives or hormone replacement Sepsis (< 1 month) Serious lung disease, including pneumonia (< 1 month) Abnormal pulmonary function Acute myocardial infarction Congestive heart failure (< 1 month) History of inflammatory bowel disease Medical patient at bed rest Age 61-74 Arthroscopic surgery Major open surgery (> 45 min) Laparoscopic surgery (> 45 min) Malignancy Confined to bed (> 72 hours) Immobilizing plaster cast Central venous access Age >= 75 History of VTE Family history of VTE Factor V Leiden Prothrombin [id number] Lupus anticoagulant Anticardiolipin antibodies Elevated serum homocysteine Heparin-induced thrombocytopenia Other congenital or acquired thrombophilia Stroke (< 1 month) Elective arthroplasty Hip, pelvis, or leg fracture Acute spinal cord injury (< 1 month) Prophylaxis Regimen Total Risk Factor Score Risk Level Prophylaxis Regimen 0-1 Low Early ambulation 2 Moderate Order ONE of the following: *Sequential Compression Device (SCD) *Heparin 5000 units SQ BID 3-4 Higher Order ONE of the following medications: *Heparin 5000 units SQ TID *Enoxaparin/Lovenox 40 mg SQ daily (WT < 150 kg, CrCl > 30 mL/min) *Enoxaparin/Lovenox 30 mg SQ daily (WT < 150 kg, CrCl > 10-29 mL/min) *Enoxaparin/Lovenox 30 mg SQ BID (WT < 150 kg, CrCl > 30 mL/min) AND/OR *Sequential Compression Device (SCD) 5 or more Highest Order ONE of the following medications: *Heparin 5000 units SQ TID (Preferred with Epidurals) *Enoxaparin/Lovenox 40 mg SQ daily (WT < 150 kg, CrCl > 30 mL/min) *Enoxaparin/Lovenox 30 mg SQ daily (WT < 150 kg, CrCl > 10-29 mL/min) *Enoxaparin/Lovenox 30 mg SQ BID (WT < 150 kg, CrCl > 30 mL/min) AND *Sequential Compression Device (SCD) Assessment and Plan Problem List: (1) Squamous cell carcinoma ICD Codes: C44.92 - Squamous cell carcinoma of skin, unspecified Plan: Squamous cell carcinoma of the rectum Pancytopenia due to antineoplastic chemotherapy Hypokalemia This a 62-year-old female patient with past medical history which includes anxiety/depression and rectal squamous cell carcinoma currently undergoing chemotherapy and radiation. Patient had biopsy 01/30/2018 positive for squamous cell carcinoma. Patient had been seen by Dr. Ludwig who referred her to Dr. Johnson for radiation patient also following with Dr. Molina for concurrent chemotherapy. Patient is refusing any further chemotherapy or radiation IV fluids with potassium Zofran as needed magic mouthwash swish and swallow Nystatin swish and swallow Protonix Morphine IV and liquid PO pain medication as needed for pain barrier cream to buttocks Supportive care Recheck CBC and BMP in a.m. Hypokalemia Replaced recheck BMP in AM Generalized anxiety Continue patient's home regiment Continue home medication Patient has a PICC line that was being used for chemotherapy. Patient would like this PICC line removed prior to her DC DVT prophylaxis with SCDs Plt count on admission 50,000 (2) Pancytopenia due to antineoplastic chemotherapy ICD Codes: D61.810 - Antineoplastic chemotherapy induced pancytopenia; T45.1X5A - Adverse effect of antineoplastic and immunosuppressive drugs, initial encounter Status: Acute (3) Generalized anxiety disorder Status: Chronic (4) Hypokalemia ICD Codes: E87.6 - Hypokalemia Status: Acute Assessment and Plan Patient examined. Assessment and plan formulated with Digna Bonds PA-C. I agree with the above. scc rectum. pt has been undergoing chemoradiation. she has had problems swallowing since chemo began. some diarrhea she is miserable. she called oncology today to say she is done with chemoradiation. she wants the picc pulled after this admission. will give ivf hydration. magic mouthwash and nystatin s/s. prn pain meds. if no improvement in dysphagia/odynophagia then consult GI. Physician Certification 2 Midnight Certification Type: Admission for Inpatient Services Order for Inpatient Services The services are ordered in accordance with Medicare regulations or non- Medicare payer requirements, as applicable. In the case of services not specified as inpatient-only, they are appropriately provided as inpatient services in accordance with the 2-midnight benchmark. Estimated LOS (days): 3 days is the estimated time the patient will need to remain in the hospital, assuming treatment plan goals are met and no additional complications. Post-Hospital Plan: Not yet determined Digna Bonds Mar 24, 2018 14:07 Axel Long MD Mar 24, 2018 18:24
[2018-03-24] MEDS: NS + KCL 20 MEQ INJ 1,000 ML IV SCH ×2 (14:43→22:48)
[2018-03-24] MEDS ORDERED: POTASSIUM CHLORIDE 20 MEQ PWD PACKET PO ONE (14:45)
[2018-03-24] MEDS ORDERED: ALPRAZolam 0.25 MG TAB PO PRN (16:15)
[2018-03-24] MEDS ORDERED: MORPHINE SULFATE 2 MG/ML SYRINGE IV PUSH PRN (17:00)
[2018-03-24] MEDS ORDERED: oxyCODONE HCL ORAL CONC 5 MG/0.25 ML SYRINGE PO PRN (17:00)
[2018-03-24] MEDS ORDERED: MORPHINE SULFATE 4 MG/ML INJ IV PUSH PRN (17:00)
[2018-03-24] MEDS: NYSTATIN SUSP 500,000 U/5 ML CUP SWISH-SWAL SCH ×2 (18:00→21:04)
[2018-03-24] MEDS: clonazePAM 1 MG TAB PO SCH ×2 (18:01→21:03)
[2018-03-24] MEDS ORDERED: PANTOPRAZOLE SOD 40 MG DELAYED RELEASE TAB PO ONE (18:15)
[2018-03-24] MEDS: DOCUSATE SODIUM 50 MG/SENNA 8.6 MG TAB PO SCH (21:00)
[2018-03-24] MEDS ORDERED: PARoxetine 25 MG CONTROLLED RELEASE TAB PO SCH (21:00)
[2018-03-24] MEDS: SODIUM CHLORIDE 0.9% FLUSH 10 ML FLUSH IV FLUSH SCH (21:00)
[2018-03-25] VITALS: BP 97/50; PULSE 80; RESP 16; TEMP 98.6; O2SAT 98
[2018-03-25] MEDS: NS + KCL 20 MEQ INJ 1,000 ML IV SCH ×3 (03:05→08:30)
[2018-03-25 03:49] VITALS: PULSE 70
[2018-03-25 04:00] VITALS: BP 101/49; PULSE 85; RESP 16; TEMP 98.2; O2SAT 95
[2018-03-25 06:10] LABS: HEMATOCRIT 30.2 % (35.0-46.0); HEMOGLOBIN 10.6 GM/DL (11.6-15.3); MEAN CELL VOLUME 83.9 FL (80.0-100.0); MEAN CORPUSCULAR HEMOGLOBIN 29.5 PG (27.0-34.0); MEAN CORPUSCULAR HGB CONC 35.1 % (32.0-36.0); MEAN PLATELET VOLUME 7.6 FL (7.0-11.0); PLATELET COUNT 52 TH/MM3 (150-450); WHITE BLOOD COUNT 0.9 TH/MM3 (4.0-11.0)
[2018-03-25 06:38] LABS: BICARBONATE 26.5 MEQ/L (21.0-32.0); CALCIUM 7.6 MG/DL (8.5-10.1); CREATININE 0.44 MG/DL (0.50-1.00)
[2018-03-25 08:10] VITALS: BP 113/75; PULSE 85; RESP 18; TEMP 97.5; O2SAT 97
[2018-03-25] MEDS: SODIUM CHLORIDE 0.9% FLUSH 10 ML FLUSH IV FLUSH SCH (08:23)
[2018-03-25] MEDS: clonazePAM 1 MG TAB PO SCH ×2 (08:29→13:17)
[2018-03-25] MEDS: DOCUSATE SODIUM 50 MG/SENNA 8.6 MG TAB PO SCH (08:29)
[2018-03-25] MEDS: NYSTAT/DIPHENHY/LIDO MOUTHWASH (Adult) 120ML SWISH-SWAL SCH ×5 (08:29→13:19)
[2018-03-25] MEDS: NYSTATIN SUSP 500,000 U/5 ML CUP SWISH-SWAL SCH ×2 (08:29→13:17)
[2018-03-25 08:59] LABS: BANDS 11 % (0-6); CORRECTED NUCLEATED RBC 1 /100 WBC (0-0); LYMPHOCYTES 32 % (9-44); MONOCYTES 26 % (0-8); MYELOCYTES 2 % (0-0); NUCLEATED RED BLOOD CELL 1 (0-0); POLYS (SEG NEUTROPHILS) 28 % (16-70)
[2018-03-25 09:00] VITALS: O2SAT 98
[2018-03-25] MEDS ORDERED: PANTOPRAZOLE SOD 40 MG DELAYED RELEASE TAB PO SCH (09:00)
[2018-03-25 09:04] LABS: NEUTROPHIL # MANUAL DIFF 0.4 TH/MM3 (1.8-7.7)
[2018-03-25] MEDS ORDERED: Nystatin Liq SWISH-SWAL (11:15)
[2018-03-25] MEDS ORDERED: PANT40TA3 PO (11:15)
[2018-03-25] MEDS ORDERED: FILGRASTIM 300 MCG/ML VIAL SQ ONE (11:15)
--- NOTE | 2018-03-25 11:16 | HHI.DCPOC ---
Discharge Care Plan Diagnosis: (1) Squamous cell carcinoma (2) Dysphagia (3) Pancytopenia due to antineoplastic chemotherapy (4) Hypokalemia Goals to Promote Your Health * To prevent worsening of your condition and complications * To maintain your health at the optimal level Directions to Meet Your Goals Take your medications as prescribed Follow your dietary instruction Follow activity as directed Keep your appointments as scheduled Take your immunizations and boosters as scheduled If your symptoms worsen call your PCP, if no PCP go to Urgent Care Center or Emergency Room Smoking is Dangerous to Your Health. Avoid second hand smoke Call the 24-hour hour crisis hotline for domestic abuse at Axel Long MD March 25, 2018 11:16
--- NOTE | 2018-03-25 11:41 | HHI.PR ---
Subjective Remarks pt says she is eating very well and not having trouble swallowing today insisting on going home. still has some diarrhea. she wants the picc out and wants no further chemo or radiation. Objective Vitals heart reg lung cta abd s/nt ext no edema Vital Signs Date Time Temp Pulse Resp B/P (MAP) Pulse Ox O2 Delivery O2 Flow Rate FiO2 03/25/18 09:00 98 21 03/25/18 08:10 97.5 85 18 113/75 (88) 97 03/25/18 04:00 98.2 85 16 101/49 (66) 95 03/25/18 03:49 70 03/25/18 00:19 21 03/25/18 00:00 98.6 80 16 97/50 (66) 98 03/24/18 23:50 72 03/24/18 20:00 Room Air 03/24/18 20:00 97.6 63 16 113/52 (72) 99 03/24/18 19:43 71 03/24/18 19:43 58 03/24/18 18:39 03/24/18 14:47 69 16 113/56 (75) 99 Room Air 03/24/18 13:26 98 21 03/24/18 12:27 54 22 103/54 (70) 96 Room Air Result Diagram: 03/25/18 0553 03/25/18 0553 A/P Problem List: (1) Squamous cell carcinoma ICD Codes: C44.92 - Squamous cell carcinoma of skin, unspecified Status: Acute Plan: Squamous cell carcinoma of the rectum Pancytopenia due to antineoplastic chemotherapy Hypokalemia This a 62-year-old female patient with past medical history which includes anxiety/depression and rectal squamous cell carcinoma currently undergoing chemotherapy and radiation. Patient had biopsy 01/30/2018 positive for squamous cell carcinoma. Patient had been seen by Dr. Ludwig who referred her to Dr. Johnson for radiation patient also following with Dr. Molina for concurrent chemotherapy. Patient is refusing any further chemotherapy or radiation pt received ivf, mmw and nystatin. she has mucositis from the 5fu spoke with dr Molina. says no more chemorad...but once recovered will discuss surgical option with dr Ludwig. will give dose neupogen encourage pt to stay another 24hrs. but she is currently demanding dc and picc removal. pcp on phone now with her. ADDENDUM: PT REFUSED TO STAY. BUT SHE WILL KEEP PICC AND F/U PCP AND ONCOLOGY. Hypokalemia Replaced Generalized anxiety Continue patient's home regiment Continue home medication (2) Pancytopenia due to antineoplastic chemotherapy ICD Codes: D61.810 - Antineoplastic chemotherapy induced pancytopenia; T45.1X5A - Adverse effect of antineoplastic and immunosuppressive drugs, initial encounter Status: Acute (3) Generalized anxiety disorder Status: Chronic (4) Hypokalemia ICD Codes: E87.6 - Hypokalemia Status: Acute Axel Long MD March 25, 2018 11:41
[2018-03-25] MEDS ORDERED: FILGRASTIM 480 MCG/1.6 ML VIAL SQ ONE (11:45)
[2018-03-25 12:10] VITALS: BP 101/64; PULSE 77; RESP 18; TEMP 98.1; O2SAT 98
[2018-03-25] MEDS ORDERED: SODIUM CHLORIDE 0.9% FLUSH 10 ML FLUSH IV FLUSH PRN (12:15)
[2018-03-25] MEDS ORDERED: PICC Daily Heparin 100 unit/mL Lock Flush IV FLUSH SCH (13:20)
== END 2018-03-25 16:20 | disposition home or self-care (01) | DRG 374 ==
LOC: NEPC 09:34 → NEDA 13:16 → N04B 18:43
PROVIDERS: ADMIT Hospitalist; ATTEND Hospitalist
DX: C20 Malignant neoplasm of rectum (principal); D61.810 Antineoplastic chemotherapy induced pancytopenia; K12.30 Oral mucositis (ulcerative), unspecified; R13.10 Dysphagia, unspecified; E86.0 Dehydration; F32.9 Major depressive disorder, single episode, unspecified; F41.9 Anxiety disorder, unspecified; E87.6 Hypokalemia; Z96.643 Presence of artificial hip joint, bilateral; T45.1X5A Adverse effect of antineoplastic and immunosuppressive drugs, initial encounter; Z88.8 Allergy status to other drugs, medicaments and biological substances; Z79.899 Other long term (current) drug therapy; Z87.891 Personal history of nicotine dependence
CPT/HCPCS: 80048; 80053; 81001; 85007; 85027; 96361; 96374; 96375; J0780; J1442; J1642; J1650; J2270; J3480; J7030

== ENCOUNTER 2018-08-12 13:48 | Observation (INO) ==
[2018-08-12] MEDS ORDERED: PARoxetine 25 MG ER Tablet PO ONE (17:36)
[2018-08-12] MEDS ORDERED: clonazePAM 0.5 MG Tablet PO ONE (17:36)
[2018-08-12] MEDS ORDERED: Morphine Inj 4 MG/ML Vial IV.PUSH ONE (17:36)
[2018-08-12] MEDS ORDERED: Sod Chloride 0.9% Inj 1,000 ML IV.SIG SCH (17:45)
[2018-08-12 17:50] LABS: Baso % (Auto) 0.1 % (0.0-2.0); Hematocrit 36.4 % (35.0-46.0); Hemoglobin 12.6 gm/dL (11.6-15.3); Lymph # (Auto) 0.5 th/mm3 (1.0-4.8); Lymph % (Auto) 6.7 % (9.0-44.0); Mean Corpuscular HGB Conc 34.6 % (32.0-36.0); Mean Corpuscular Hemoglobin 30.5 pg (27.0-34.0); Mean Platelet Volume 8.2 fL (7.0-11.0); Mono # (Auto) 0.8 th/mm3 (0.0-0.9); Mono % (Auto) 10.4 % (0.0-8.0); Neut # (Auto) 6.5 th/mm3 (1.8-7.7); Neut % (Auto) 82.8 % (16.0-70.0); Platelet Count 193 th/mm3 (150-450); Red Blood Count 4.14 mil/mm3 (4.00-5.30); Red Cell Distribution Width 12.6 % (11.6-17.2); White Blood Count 7.9 th/mm3 (4.0-11.0)
[2018-08-12 17:55] LABS: Bacteria,Urine Occasional /hpf; Bilirubin,Urine Negative (Negative); Clarity,Urine Cloudy (Clear); Color,Urine Yellow (Yellw/Straw); Glucose,Urine (UA) Negative (Negative); Leukocyte Esterase,Urine Large (Negative); Mucus,Urine Few /lpf (Occasional); Nitrite,Urine Negative (Negative); Specific Gravity,Urine 1.014 (1.002-1.035)
[2018-08-12 18:13] LABS: Alanine Aminotransferase 14 U/L (10-53); Albumin 3.1 g/dL (3.4-5.0); Anion Gap 12 meq/L (5-15); Aspartate Aminotransferase 17 U/L (15-37); Blood Urea Nitrogen 11 mg/dL (7-18); Calcium 8.6 mg/dL (8.5-10.1); Carbon Dioxide 23.9 meq/L (21.0-32.0); Chloride 100 meq/L (98-107); Glomerular Filtration Rate 73 mL/min (>89); Glucose,Random 102 mg/dL (74-106); Potassium 3.4 meq/L (3.5-5.1); Sodium 136 meq/L (136-145)
[2018-08-12 18:16] LABS: Alkaline Phosphatase 57 U/L (45-117); Total Protein 7.2 g/dL (6.4-8.2)
--- NOTE | 2018-08-12 19:16 | ED ---
HPI General Chief complaint: Urogenital-Female Stated complaint: doctor sent medical Time Seen by Provider: 08/12/18 16:49 Source: patient Mode of arrival: ambulatory Limitations: no limitations History of Present Illness HPI Narrative: This 62-year-old woman with a history of squamosal carcinoma of the rectum, status post chemotherapy and radiation therapy, last radiation therapy was April of this year. Recent PET scan on August 01 shows no evidence of recurrent disease. Also showed a right ureteral lithiasis. On Saturday she started getting right flank pain, she did not have any previously, she also started getting she is a history of one previous kidney stone in the past. No history of pyelonephritis. She otherwise had been feeling generally well and healthy. Related Data Home Medications Medication Instructions Recorded Confirmed buspirone 15 mg PO BID 08/12/18 08/12/18 clonazepam 0.5 mg PO BID 08/12/18 08/12/18 diphenoxylate-atropine [Lomotil] 1 tab PO Q6-8H PRN 08/12/18 08/12/18 paroxetine HCl [Paxil CR] 25 mg PO DAILY 08/12/18 08/12/18 Allergies Allergy/AdvReac Type Severity Reaction Status Date / Time warfarin Allergy Severe sob/dizzy Verified 08/12/18 16:55 Review of Systems ROS: all other systems reviewed are negative [facility] Medical History Medical History Anxiety (Acute) Depression (Acute) Rectal cancer (Acute) Surgical History Surgical History History of hip surgery (Acute) H/O tubal ligation (Acute) Hx of appendectomy (Acute) Social History Social History Substance History: No History of Abuse Smoking Status: Former smoker How Often Do You Have a Drink Containing Alcohol: Never Recent Travel in [facility] within the Last 8 Weeks: No Recent Out of Country Travel within the Last 8 Weeks: No Immunization History Tetanus Immunization: <5 Years Hx Influenza Vaccine This Season: Yes Exam Narrative Exam Narrative: GENERAL: Well-appearing 62-year-old woman, no acute distress. SKIN: Focused skin assessment warm/dry. HEAD: Atraumatic. Normocephalic. EYES: Pupils equal and round. No scleral icterus. No injection or drainage. ENT: No nasal bleeding or discharge. Mucous membranes pink and moist. NECK: Trachea midline. No JVD. CARDIOVASCULAR: Regular rate and rhythm. No murmur appreciated. RESPIRATORY: No accessory muscle use. Clear to auscultation. Breath sounds equal bilaterally. GASTROINTESTINAL: Abdomen soft, non-tender, nondistended. Hepatic and splenic margins not palpable. MUSCULOSKELETAL: No obvious deformities. No clubbing. No cyanosis. No edema. NEUROLOGICAL: Awake and alert. No obvious cranial nerve deficits. Motor grossly within normal limits. Normal speech. PSYCHIATRIC: Appropriate mood and affect; insight and judgment normal. Course Initial Documented Vital Signs Temperature 100.3 F H 08/12/18 13:54 Pulse Rate 107 H 08/12/18 13:54 Respiratory Rate 18 08/12/18 13:54 Blood Pressure 153/63 H 08/12/18 13:54 Pulse Oximetry 95 08/12/18 13:54 Last Documented Vital Signs Temperature 99.2 F 08/12/18 16:58 Pulse Rate 86 08/12/18 19:11 Respiratory Rate 15 08/12/18 19:11 Blood Pressure 102/59 L 08/12/18 19:11 Pulse Oximetry 99 08/12/18 19:13 Sign Out Sign Out Data: Patient Sign Out occurred on 08/12/18 at 19:37. Patient's care was discussed, and care was transferred from Carroll Felix MD to Stephany Madrigal MD. Sign Out Comment: Follow-up CT and labs. Plan on admission to [facility]. I already spoke with Dr. Verduzco. If CT shows ureterolithiasis, will need discussion with urology. Last updated by Carroll Felix MD at 08/12/18 19:29 Post-Handoff Eval: Received care patient at time of checkup. At time of checkout CT was pending with plan for admission pending results. CT does show a 7 mm stone with obstructive changes. UA does show innumerable white blood cells for which the patient has received Rocephin. White blood cell count and creatinine are within normal limits. The patient has been hemodynamically stable in the emergency department. I spoke with Dr. Mccrary, urologist on-call, who agreed to see the patient. I then [facility]du[facility]co[facility] to [facility] the patient. Medical Decision Making MDM Narrative Medical decision making narrative: 62-year-old presents emerged from right ureterolithiasis and concern for pyelonephritis. She looks overall well. Is referred by her primary physician. We will give IV fluids, IV antibiotics, CT scan, likely discussion with urology and admission. Medical Screen Exam Complete: Yes Emergency Medical Condition: Yes Lab Data Result diagrams: 08/12/18 17:26 08/12/18 17:26 Lab Results 08/12/18 08/12/18 08/12/18 Range/Units 17:03 17:03 17:26 WBC 7.9 (4.0-11.0) th/mm3 RBC 4.14 (4.00-5.30) mil/mm3 Hgb 12.6 (11.6-15.3) gm/dL Hct 36.4 (35.0-46.0) % MCV 88.0 (80.0-100.0) fL MCH 30.5 (27.0-34.0) pg MCHC 34.6 (32.0-36.0) % RDW 12.6 (11.6-17.2) % Plt Count 193 (150-450) th/mm3 MPV 8.2 (7.0-11.0) fL Neut % (Auto) 82.8 H (16.0-70.0) % Lymph % (Auto) 6.7 L (9.0-44.0) % [place] % (Auto) 10.4 H (0.0-8.0) % Eos % (Auto) 0.0 (0.0-4.0) % Baso % (Auto) 0.1 (0.0-2.0) % Neut # (Auto) 6.5 (1.8-7.7) th/mm3 Lymph # (Auto) 0.5 L (1.0-4.8) th/mm3 Morrison # (Auto) 0.8 (0.0-0.9) th/mm3 Eos # (Auto) 0.0 (0.0-0.4) th/mm3 Baso # (Auto) 0.0 (0.0-0.2) th/mm3 WBC Differential . Differential Comment Auto diff final Sodium (136-145) meq/L Potassium (3.5-5.1) meq/L Chloride (98-107) meq/L Carbon Dioxide (21.0-32.0) meq/L Anion Gap (5-15) meq/L BUN (7-18) mg/dL Creatinine (0.50-1.00) mg/dL Estimated GFR (>89) mL/min Random Glucose (74-106) mg/dL Lactic Acid 1.2 (0.4-2.0) mmol/L Calcium (8.5-10.1) mg/dL Total Bilirubin (0.2-1.0) mg/dL AST (15-37) U/L ALT (10-53) U/L Alkaline Phosphatase (45-117) U/L Total Protein (6.4-8.2) g/dL Albumin (3.4-5.0) g/dL Urine Color Yellow (Yellw/Straw) Urine Clarity Cloudy H (Clear) Urine pH 6.0 (5.0-8.5) Ur Specific [place] 1.014 (1.002-1.035) Urine Protein 30 H (Neg-Trace) mg/dL Urine Glucose (UA) Negative (Negative) mg/dL Urine Ketones 20 (Negative) mg/dL Urine Occult Blood Moderate H (Negative) Urine Nitrate Negative (Negative) Urine Bilirubin Negative (Negative) Urine Urobilinogen Less than 2 (Less than 2) mg/dL Ur Leukocyte Esterase Large H (Negative) Urine RBC 2 (0-3) /hpf Urine WBC (0-5) /hpf Urine Bacteria Occasional H (None) /hpf Urine Mucus Few H (Occasional) /lpf Micro UA Comment Culture indicated Ur Microscopic Review Not Reportable Urine Culture Comments Culture indicated 08/12/18 Range/Units 17:26 WBC (4.0-11.0) th/mm3 RBC (4.00-5.30) mil/mm3 Hgb (11.6-15.3) gm/dL Hct (35.0-46.0) % MCV (80.0-100.0) fL MCH (27.0-34.0) pg MCHC (32.0-36.0) % RDW (11.6-17.2) % Plt Count (150-450) th/mm3 MPV (7.0-11.0) fL Neut % (Auto) (16.0-70.0) % Lymph % (Auto) (9.0-44.0) % [place] % (Auto) (0.0-8.0) % Eos % (Auto) (0.0-4.0) % Baso % (Auto) (0.0-2.0) % Neut # (Auto) (1.8-7.7) th/mm3 Lymph # (Auto) (1.0-4.8) th/mm3 [place] # (Auto) (0.0-0.9) th/mm3 Eos # (Auto) (0.0-0.4) th/mm3 Baso # (Auto) (0.0-0.2) th/mm3 WBC Differential Differential Comment Sodium 136 (136-145) meq/L Potassium 3.4 L (3.5-5.1) meq/L Chloride 100 (98-107) meq/L Carbon Dioxide 23.9 (21.0-32.0) meq/L Anion Gap 12 (5-15) meq/L BUN 11 (7-18) mg/dL Creatinine 0.79 (0.50-1.00) mg/dL Estimated GFR 73 L (>89) mL/min Random Glucose 102 (74-106) mg/dL Lactic Acid (0.4-2.0) mmol/L Calcium 8.6 (8.5-10.1) mg/dL Total Bilirubin 0.4 (0.2-1.0) mg/dL AST 17 (15-37) U/L ALT 14 (10-53) U/L Alkaline Phosphatase 57 (45-117) U/L Total Protein 7.2 (6.4-8.2) g/dL Albumin 3.1 L (3.4-5.0) g/dL Urine Color (Yellw/Straw) Urine Clarity (Clear) Urine pH (5.0-8.5) Ur Specific [place] (1.002-1.035) Urine Protein (Neg-Trace) mg/dL Urine Glucose (UA) (Negative) mg/dL Urine Ketones (Negative) mg/dL Urine Occult Blood (Negative) Urine Nitrate (Negative) Urine Bilirubin (Negative) Urine Urobilinogen (Less than 2) mg/dL Ur Leukocyte Esterase (Negative) Urine RBC (0-3) /hpf Urine WBC (0-5) /hpf Urine Bacteria (None) /hpf Urine Mucus (Occasional) /lpf Micro UA Comment Ur Microscopic Review Urine Culture Comments Imaging Data Radiologist's impression: Chest X-Ray 08/12/18 17:02 CONCLUSION: Negative examination. Abdomen/Pelvis CT 08/12/18 17:38 CONCLUSION: 1. Right-sided obstructive uropathy with moderate to severe hydronephrosis and ureteral dilatation above a 7 mm calculus in the distal right ureter above the bladder. Discharge Plan Discharge Disposition Patient Disposition: 30 Still Patient Discharge Condition Condition: Stable Discharge Details Diagnosis: Acute pyelonephritis, Hydronephrosis with ureteral calculus Physicians Team ED Provider: Stephany Madrigal Primary Care Provider: Dorita Marie Attending Provider: Lane Verduzco Discharge Interventions Interventions: Vital Signs Last Done: 08/12/18 19:11 Status ED Status: Admitted Patient
[2018-08-12] MEDS ORDERED: Morphine Inj 4 MG/ML Vial IV.PUSH PRN (20:38)
[2018-08-12] MEDS: clonazePAM 0.5 MG Tablet PO SCH (22:22)
[2018-08-13] MEDS ORDERED: Morphine Inj 4 MG/ML Vial IV.PUSH PRN ×2 (00:59→01:15)
[2018-08-13] MEDS ORDERED: Acetaminophen 500 MG Tablet PO PRN (01:00)
[2018-08-13] MEDS ORDERED: Ketorolac Inj 30 MG/ML (IVP) Vial IV.PUSH ONE (01:00)
[2018-08-13] MEDS ORDERED: Sodium Chlor 0.9% Inj 500 ML IV.SIG STA (05:28)
[2018-08-13 06:12] LABS: Alanine Aminotransferase 11 U/L (10-53); Albumin 2.5 g/dL (3.4-5.0); Alkaline Phosphatase 51 U/L (45-117); Anion Gap 10 meq/L (5-15); Aspartate Aminotransferase 19 U/L (15-37); Blood Urea Nitrogen 12 mg/dL (7-18); Carbon Dioxide 23.9 meq/L (21.0-32.0); Chloride 105 meq/L (98-107); Glomerular Filtration Rate 73 mL/min (>89); Glucose,Random 102 mg/dL (74-106); Potassium 3.9 meq/L (3.5-5.1); Sodium 139 meq/L (136-145); Total Protein 5.9 g/dL (6.4-8.2)
[2018-08-13] MEDS ORDERED: PARoxetine 25 MG ER Tablet PO SCH ×2 (09:00→21:00)
[2018-08-13] MEDS: clonazePAM 0.5 MG Tablet PO SCH (09:06)
[2018-08-13] MEDS ORDERED: fentaNYL Citrate Inj 100 MCG/2 ML Ampul ONE (12:37)
--- NOTE | 2018-08-13 21:35 | ECG ---
Date Performed: 08/12/2018 Time Performed: 17:44:52 PTAGE: 62 years EKG: Sinus rhythm NORMAL ECG PREVIOUS TRACING : 12/26/2017 17.12 Since the previous tracing, no significant change noted DOCTOR: Margarette Clarke Interpretating Date/Time 08/13/2018 21:33:23
== END 2018-08-13 15:00 | disposition home or self-care (01) ==
LOC: NEPE 13:48 → INTOOBSV 19:42 → NEDA 19:42 → NEPFCDU 21:42 → N07 08-13 10:16
PROVIDERS: ADMIT Hospitalist; ATTEND Hospitalist
DX: N18.2 Chronic kidney disease, stage 2 (mild); N28.82 Megaloureter; B96.4 Proteus (mirabilis) (morganii) as the cause of diseases classified elsewhere; N13.2 Hydronephrosis with renal and ureteral calculous obstruction; Z82.61 Family history of arthritis; C20 Malignant neoplasm of rectum; Z92.3 Personal history of irradiation; Z01.810 Encounter for preprocedural cardiovascular examination; F41.1 Generalized anxiety disorder; Z92.21 Personal history of antineoplastic chemotherapy; Z98.51 Tubal ligation status; Z80.0 Family history of malignant neoplasm of digestive organs; N10 Acute pyelonephritis; Z87.891 Personal history of nicotine dependence; Z90.49 Acquired absence of other specified parts of digestive tract; F32.9 Major depressive disorder, single episode, unspecified; Z96.641 Presence of right artificial hip joint